=== PATIENT | male | born 1975 | race Caucasian/White ===

== ENCOUNTER 2023-01-11 12:11 | Outpatient (CLI) | payer OTHER, SELFPAY | END 2023-01-11 12:12 | disposition home or self-care (01) | PROVIDERS: PCP Family Medicine; Visit Provider Family Medicine | DX: R07.89 Other chest pain (principal); L98.9 Disorder of the skin and subcutaneous tissue, unspecified | CPT/HCPCS: 80048; 80061 ==

== ENCOUNTER 2023-04-27 09:32 | Outpatient (CLI) | payer OTHER, SELFPAY ==
--- OUTSIDE RECORDS SUMMARY | 2023-04-27 09:35 | XMS_ITS | Clinical Summary ---
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 1 tablet 0 11/26/2017 Active triamcinolone, 55 mcg each actuation, nasal (NASACORT) 55 mcg nasal sprayIndications:M ild persistent asthma without complication Inhale 2 Sprays into both nostrils once daily. 16.5 g 0 11/26/2017 Active Dulera 200-5 mcg/actuation inhalerIndications :Mild persistent asthma without complication INHALE 2 PUFFS BY MOUTH TWICE DAILY 36 g 1 09/27/2020 Active albuterol HFA (PRO-AIR; VENTOLIN; PROVENTIL) 90 mcg/actuation inhalerIndications :Mild persistent asthma without complication INHALE TWO PUFFS BY MOUTH FOUR TIMES A DAY NEEDED 1 Each 6 09/24/2020 Active EPINEPHrine (EPIPEN) 0.3 mg/0.3 mL auto-injector in the thigh. Inject EpiPen intramuscularly or subcutaneously into the anterolateral aspect of the thigh, through clothing if necessary. 0 08/01/2021 Active ibuprofen (ADVIL; MOTRIN) 600 mg tabletIndications: Phlebitis Take 1 Tablet (600 mg) by mouth three times daily with meals. For 5 days then use as needed for comfort for 5 more days Maximum of 3200 mg in 24 hours. 25 Tablet 0 01/15/2023 Active Active Problems Problem Noted Date Diagnosed Date Environmental allergies 08/21/2013 Overview: Nut, shellfish Asthma 08/21/2013 Encounters Date Type Department Care Team Description 02/19/2023 Orders Only [facility] Scanner 1 scan: (1-Ord) [facility], EXCISION LT DISTAL POSTERIOR UPPER ARM, 02/19/2023 from Last 3 Months Family History Medical History Relation Name Comments Hyperlipidemia Father Other Father Osteoarth. Rashaun Hip Repl. Cancer Maternal Grandfather lung, h eavy smoker Diabetes Maternal Grandfather Type 2 Diabetes Maternal Grandmother Type 2 Cancer Mother skin cancer Other Mother Fuchs dystrophy Relation Name Status Comments Daughter Alive x2 Father Alive Maternal Grandfather Maternal Grandmother Mother Alive Son Alive x2 Social History Tobacco Use Types Packs/Day Years Used Date Smoking Tobacco: Never Smokeless Tobacco: Never Tobacco Cessation:Counseling Given: Yes Alcohol Use Standard Drinks/Week Comments Yes 0 (1 standard drink = 0.6 oz pur e alcohol) social PHQ-2 Answer Date Recorded PHQ-2 Score 0 06/18/2018 Social Connections Answer Date Recorded Frequency of Communication with Friends and Fami ly Not on file 04/13/2021 Financial Resource Strain Answer Date R ecorded Difficulty of Paying Living Expenses Not on file 04/13/2021 Difficulty of Paying Living Expenses Not on file 04/13/2021 Sex and Gender Information Value Date Recorded Sex Assigned at Not on file Gender Identity Not on file Sexual Orientation Not on file Obstetrics History Last Filed Vital Signs Vital Sign Reading Time Taken Comments Blood Pressure 134/69 01/15/2023 5:14 PM CDT Pulse 60 01/15/2023 5:14 PM CDT Temperature 36.9 ??C (98.5 ??F) 01/15/2023 5:14 PM CD T Respiratory Rate 18 01/15/2023 5:14 PM CDT Oxygen Saturation 100% 01/15/2023 5:14 PM CDT Inhaled Oxygen Concentration - - Weight 81.6 kg (180 lb) 01/15/2023 5:14 PM CDT Height 188 cm (6' 2.02) 10/11/2020 8:55 AM CDT Body Mass Index 23.1 10/11/2020 8:55 AM CDT Plan of Treatment Health Maintenance Due Date Last Done Comments Tdap 11/25/1987 HIV for age 15-65 11/25/1991 Hepatitis C screening for age 18-79 1994 Tetanus booster 1996 Depression screening for age 12+ 11/26/2018 11/26/2017, 08/13/2015 BMI (ht and wt on same day) for age 18+ 10/11/2021 10/11/2020, 04/20/2020, 06/11/2019, Additional history exists Colonoscopy through age 75 2021 Lipids for age 45-75 11/26/2022 11/26/2017, 10/29/19 15 COVID-19 vaccine series (2022- season) 2022 08/04/2020 Influenza for age 9-49 12/15/2022 Pneumococcal series for age 6-64 Aged Out No longer eligible based on patient's age to complete this topic Procedures Procedure Name Priority Date/Time Associated Diagnosis Comments SCAN-OPERATIVE/PROC EDURE REPORT 02/19/2023 12:00 AM STAINED GLASS ARTIST from Last 3 Months Results * SCAN-OPERATIVE/PROCEDURE REPORT (02/19/2023 12:00 AM STAINED GLASS ARTIST) Scanner OTHER from Last 3 Months Advance Directives Documents on File Type Date Recorded Patient Traffic Survey Technician Expl anation Healthcare Directive 11/21/2022 023 Care Teams Collar Runner Relationship Specialty Start Date End Date Koby Chiang MD [address] [place] [address] PCP - General Family Practice 04/26/15
--- OUTSIDE RECORDS SUMMARY | 2023-04-27 09:35 | XMS_ITS | Clinical Summary ---
Author Name Unknown Organization [facility] Address [address] [place] [address] Care Team Providers Care Shelter Monitor Name Role Phone Unavailable Primary Care Provider Unavailabl e Source Comments You are receiving this document as you are listed as the primary care provider,follow-up provider, or the patient has been referred to you for consultation.This is in compliance with the Medicare andMedicaid EHR Incentive Program,which states Providers who transition their patient to another setting of careor provider of care or refers their patient to another provider of care shouldprovide summary care record for each transition of care or referral. [facility] Allergies No known active allergies Medications No known medications Social History Tobacco Use Types Packs/Day Years Used Date Smoking Tobacco: Never Assessed Sex and Gender Information Value Date Recorded Sex Assigned at Not on file Gender Identity Not on file Sexual Orientation Not on file Last Filed Vital Signs Vital Sign Reading Time Taken Comments Blood Pressure - - Pulse - - Temperature 36.4 ??C (97.5 ??F) 12/16/2021 9:24 AM CD T Respiratory Rate - - Oxygen Saturation - - Inhaled Oxygen Concentration - - Weight - - Height - - Body Mass Index - - Plan of Treatment Health Maintenance Due Date Last Done Comments Colon Cancer Screening Plan Due 1976 Hep C Screening (Preventive Services) 1976 HepB (1) 1976 COVID-19 Vaccine (#1) 05/27/1977 HIV Screening (Preventive Services) 1992 Adult Preventive Visit 1994 DTaP/Tdap/Td (1 - Tdap) 11/25/1995 Cholesterol 11/25/2011 Influenza (#1) 2022 03/05/2015 Zoster/Shingles (1 of 2) 2026 HepA Aged Out No longer eligi ble based on patient's age to complete this topic Hib Aged Out No longer eligi ble based on patient's age to complete this topic IPV (Polio) Aged Out No longer eligi ble based on patient's age to complete this topic MCV4 Aged Out No longer eligi ble based on patient's age to complete this topic Pneumococcal Aged Out No longer eligi ble based on patient's age to complete this topic
--- NOTE | 2023-04-27 10:13 | W.ANESCHARGE ---
Anesthesia Charges Start Date/Time Anesthesia Start Date: 04/27/23 Anesthesia Start Time: 10:01 Stop Date/Time Anesthesia Stop Date: 04/27/23 Anesthesia Stop Time: 10:25
--- NOTE | 2023-04-27 10:28 | W.ANESCHARGE ---
Anesthesia Charges Start Date/Time Anesthesia Start Date: 04/27/23 Anesthesia Start Time: 10:01 Stop Date/Time Anesthesia Stop Date: 04/27/23 Anesthesia Stop Time: 10:25
== END 2023-04-27 09:33 | disposition home or self-care (01) ==
LOC: OP CLINIC 09:33
PROVIDERS: PCP Family Medicine; Visit Provider Internal Medicine
DX: Z12.11 Encounter for screening for malignant neoplasm of colon (principal)
CPT/HCPCS: 00811; 00812; 45378; J2704

== ENCOUNTER 2025-03-19 07:53 | Outpatient (CLI) | payer BC, SELFPAY | END 2025-03-19 07:54 | disposition home or self-care (01) | PROVIDERS: PCP Family Medicine; Visit Provider Family Medicine | DX: E78.5 Hyperlipidemia, unspecified (principal) | CPT/HCPCS: 80053; 80061 ==